=== PATIENT | female | born 1980 | race Caucasian/White ===

== ENCOUNTER 2016-11-12 11:52 | Emergency (ER) | payer SELFPAY ==
[2016-11-12 12:27] VITALS: BP 125/77
--- NOTE | 2016-11-12 18:44 | ER ---
SUBJECTIVE: The patient is a 36-year-old female, who states she just came from [place], it is her first day in [place], and she has some congestion in her nose. Occasional cough. Feels stuffed up. She has some right ear pain. She states she has chronic ear conditions. 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 She denies any trauma, denies any fevers, chills, nausea, vomiting, or diarrhea. No syncope. 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 She is hard of hearing, she has had PE tubes, she has had recurrent pneumonia, she had a tubal ligation. CURRENT MEDICATIONS: Include Ventolin HFA 1 puff inhaled twice a day p.r.n. ALLERGIES: She denies any allergies. SOCIAL HISTORY: She states she just got here from [place], it is her first day here. She has not established care yet. She is here with her mother and her young daughter, she states she smokes cigarettes every day and has done so for 20 years, she uses coffee and sports drinks, soda, and tea, but no alcohol and no recreational drug use. REVIEW OF SYSTEMS: No fevers. No chills. Occasional cough. Some nasal congestion. Some right ear pain. Occasional sore throat. No bowel or bladder changes. Please see HPI. OBJECTIVE: Vital Signs: Stable. She is afebrile, appears in no distress, nontoxic. She is somewhat warm. HEENT: Normocephalic, atraumatic. Conjunctivae are clear. Mucous membranes moist. Oropharynx is moist, mild erythema. It was swabbed by the nurse for a strep test. Her left ear is fairly normal. Her right ear is abnormal, but does not appear particularly infected. It appears as though she has had some surgery in the past. It is exquisitely tender to exam. I was extremely careful and looked in the ear, very hard to get a look in the ear, she continues to pull away. I do not see any redness, no drainage, no perforation, and no foreign bodies. The ear was abnormal. It could possibly be infected, but it is doubtful. It is likely secondary to the previous multiple surgeries she has had. Again, it was such a difficult exam as she would not allow further exam. Her mastoid is nontender. The pinna itself is nontender. Sinuses are nontender. Neck: No lymphadenopathy. Has full range of motion. Lungs: She has no respiratory distress. No coughing during exam. She moves well. I advised the patient we will see what the rapid strep shows. LAB/STUDIES: The strep and flu test were both negative. ASSESSMENT: 1. Right otalgia with possible infection, and the patient with removal of 4 cholesteatomas previously. 2. Upper respiratory infection with congestion and occasional cough. 3. Left against medical advice. PLAN: Her infection may be just viral, but because of the chronic ear issues and the difficult exam and her other upper respiratory issues, I did decide to put her on antibiotics and write her prescription of Ceftin 500 mg 1 p.o. b.i.d. for 10 days. Also, she is to take Tylenol and ibuprofen for baseline pain, but for severe ear pain, which I realized can be extremely tender, I did give her a prescription for tramadol 50 mg 1 p.o. t.i.d. p.r.n., #20, no refills. Advised fluids, rest, Tylenol and ibuprofen, symptomatic treatment, aggressive hydration, cooling and a heating pad. Advised to call clinic today and get established for ongoing care. When I did go out to put the prescription on the form and finish the discharge portion, I was informed by the RN that the patient had already left and had left AMA because she "didn't want to stay here anymore." As far as I know, the patient did not receive any of the results of her flu or rapid strep swabs and she certainly did not get the prescriptions and apparently just left AMA even though she did not have to wait very long period. I am not aware of any event or situation that prompted her to leave. She was certainly in no distress. She can certainly return to [facility] if she chooses to. [facility] /[phone]
== END 2016-11-12 13:25 | disposition left against medical advice (07) ==
LOC: DL.ED 11:52
DX: J06.9 Acute upper respiratory infection, unspecified (principal); H92.01 Otalgia, right ear; F17.210 Nicotine dependence, cigarettes, uncomplicated; Z87.01 Personal history of pneumonia (recurrent); Z98.51 Tubal ligation status
CPT/HCPCS: 87081; 87430; 87804; 99283

== ENCOUNTER 2017-06-14 17:34 | Emergency (ER) | payer MEDICAID ==
[2017-06-14 18:55] VITALS: BP 136/95
[2017-06-14] MEDS ORDERED: Clindamycin HCl 150 MG Cap PO ONE (19:01)
[2017-06-14] MEDS ORDERED: Acetaminophen/HYDROcodone 325-10 MG Tab PO ONE (19:01)
--- NOTE | 2017-06-14 19:06 | EDM.PDOC ---
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 Upper Tooth/Teeth Pain Score (Numeric/FACES): 6 - Related Data Allergies Allergy/AdvReac Type Severity Reaction Status Date / Time No Known Allergies Allergy Verified 06/14/17 18:55 Home Meds: Home Meds Albuterol [IJD: Ventolin HFA] 1 puff INH .TWICE DAILY PRN 11/12/16 [History] Past Medical History HEENT History: Reports: Hard of Hearing Respiratory History: Reports: Pneumonia, Recurrent Other OB/BYN History: tubal - Past Surgical History HEENT Surgical History: Reports: Myringotomy w Tube(s) Neurological Surgical History: Reports: Other (See Below) Social & Family History - Family History Family Medical History: Noncontributory - Tobacco Use Smoking Status *Q: Current Every Day Smoker Years of Tobacco use: 15 Packs/Tins Daily: 5 - Caffeine Use Caffeine Use: Reports: Coffee, Soda, Tea - Recreational Drug Use Recreational Drug Use: No ED ROS ENT - Review of Systems Review Of Systems: ROS reveals no pertinent complaints other than HPI. ED EXAM, ENT - Physical Exam Exam: See Below Exam Limited By: No Limitations General Appearance: Alert, WD/WN, Mild Distress, Other (tooth pain, crying) Ears: Hearing Grossly Normal Mouth/Throat: Dental Abcess, Dental Pain, Dental Tenderness, Other (extensive dental decay) Head: Atraumatic Neck: Non-Tender, Full Range of Motion Respiratory/Chest: No Respiratory Distress Cardiovascular: Regular Rate, Rhythm GI/Abdominal: Soft, Non-Tender Neurological: Alert, Oriented, Normal Cognition, Normal Gait, No Motor/Sensory Deficits Psychiatric: Tearful Skin: Warm, Dry, Normal Color Lymphatic: No Adenopathy Course - Vital Signs Last Recorded V/S: Last Vital Signs Temp 37.1 C 06/14/17 18:45 Pulse 97 06/14/17 18:45 Resp 20 06/14/17 18:45 BP 136/95 H 06/14/17 18:45 Pulse Ox 100 06/14/17 18:45 - Orders/Labs/Meds Meds: Medications Discontinued Medications Generic Name Dose Route Start Last Admin Trade Name Freq PRN Reason Stop Dose Admin Hydrocodone Bitart/Acetaminophen 1 tab 06/14/17 19:01 [place] 325-10 Mg PO 06/14/17 19:02 ONETIME ONE Clindamycin HCl 300 mg 06/14/17 19:01 Cleocin PO 06/14/17 19:02 ONETIME ONE Departure - Departure Time of Disposition: 19:04 Disposition: Home, Self-Care 01 Condition: Good Clinical Impression: Dental caries extending into dentin, Dental abscess, Dental caries - Discharge Information Instructions: Dental Abscess, [id number] Additional Instructions: 1) see Dentist 2) avoid sodas & candies. rx given; clindamycin 150mg qid x 40 vicodin 5/325mg tid prn x 20
== END 2017-06-14 19:09 | disposition home or self-care (01) ==
LOC: DL.ED 17:34
DX: K04.7 Periapical abscess without sinus (principal); K02.9 Dental caries, unspecified; F17.210 Nicotine dependence, cigarettes, uncomplicated
CPT/HCPCS: 99282; A9270

== ENCOUNTER 2017-06-16 09:56 | Emergency (ER) | payer MEDICAID ==
[2017-06-16 10:18] VITALS: BP 149/89
[2017-06-16] MEDS ORDERED: Lidocaine 2% Jelly 10 ML Urojet MUCMEM ONE (10:23)
--- NOTE | 2017-06-16 10:34 | EDM.PDOC ---
ED HPI GENERAL MEDICAL PROBLEM - General Chief Complaint: ENT Problem Stated Complaint: MOUTH STILL INFECTIED Time Seen by Provider: 06/16/17 10:22 Source of Information: Reports: Patient History Limitations: Reports: No Limitations - History of Present Illness INITIAL COMMENTS - FREE TEXT/NARRATIVE: 36 yo [place] Female c/o soreness and swelling to upper palate Onset: Today Onset Date: 06/16/17 Onset Time: 12:00 Duration: Day(s): Location: Reports: Face Quality: Reports: Ache Severity: Moderate Improves with: Reports: None Worsens with: Reports: None Context: Reports: Other (Pt. w/ advanced cavities) Associated Symptoms: Reports: No Other Symptoms Left Upper Gums Pain Score (Numeric/FACES): 8 - Related Data Allergies Allergy/AdvReac Type Severity Reaction Status Date / Time No Known Allergies Allergy Verified 06/16/17 10:14 Home Meds: Home Meds Albuterol [IJD: Ventolin HFA] 1 puff INH .TWICE DAILY PRN 11/12/16 [History] Clindamycin HCl [Cleocin] 150 mg PO Q6H 06/16/17 [History] oxyCODONE HCl/Acetaminophen [Percocet 5-325 mg Tablet] 1 tab PO PRN 06/16/17 [ History] Past Medical History HEENT History: Reports: Hard of Hearing Respiratory History: Reports: Pneumonia, Recurrent Other OB/BYN History: tubal - Past Surgical History HEENT Surgical History: Reports: Myringotomy w Tube(s) Neurological Surgical History: Reports: Other (See Below) Social & Family History - Family History Family Medical History: Noncontributory - Tobacco Use Smoking Status *Q: Current Every Day Smoker Years of Tobacco use: 15 Packs/Tins Daily: 5 - Caffeine Use Caffeine Use: Reports: Coffee, Soda, Tea - Recreational Drug Use Recreational Drug Use: No ED ROS ENT - Review of Systems Review Of Systems: See Below Constitutional: Reports: No Symptoms HEENT: Reports: Other (hard palate swelling w/ advanced caries) Respiratory: Reports: No Symptoms Cardiovascular: Reports: No Symptoms Endocrine: Reports: No Symptoms GI/Abdominal: Reports: No Symptoms : Reports: No Symptoms Musculoskeletal: Reports: No Symptoms Skin: Reports: No Symptoms Neurological: Reports: No Symptoms Psychiatric: Reports: No Symptoms Hematologic/Lymphatic: Reports: No Symptoms Immunologic: Reports: No Symptoms ED EXAM, ENT - Physical Exam Exam: See Below Exam Limited By: No Limitations General Appearance: Alert, No Apparent Distress, Anxious Eye Exam: Bilateral Eye: PERRL Ears: Normal External Exam Nose: Normal Inspection Mouth/Throat: Other (upper palate induration w/ advanced cavities) Head: Atraumatic, Normocephalic Neck: Normal Inspection, Supple Respiratory/Chest: No Respiratory Distress, Lungs Clear Cardiovascular: Normal Peripheral Pulses, Regular Rate, Rhythm GI/Abdominal: Normal Bowel Sounds Back: Normal Inspection Extremities: Normal Inspection, Normal Range of Motion Neurological: Alert, Oriented, CN II-XII Intact Psychiatric: Normal Affect Skin: Warm, Dry, Intact Lymphatic: No Adenopathy Course - Vital Signs Last Recorded V/S: Last Vital Signs Temp 37.1 C 06/16/17 10:16 Pulse 88 06/16/17 10:16 Resp 16 06/16/17 10:16 BP 149/89 H 06/16/17 10:16 Pulse Ox 99 06/16/17 10:16 - Orders/Labs/Meds Meds: Medications Discontinued Medications Generic Name Dose Route Start Last Admin Trade Name Felix PRN Reason Stop Dose Admin Lidocaine HCl 10 ml 06/16/17 10:23 Xylocaine 2% Jelly MUCMEM 06/16/17 10:24 ONETIME ONE Departure - Departure Time of Disposition: 10:54 Disposition: Against Medical Advice 07 Condition: Good Clinical Impression: Hard palate abscess, Caries involving multiple surfaces of tooth, Left against medical advice - Discharge Information Forms: ED Department Discharge, Refusal of Care AMA
== END 2017-06-16 10:55 | disposition left against medical advice (07) ==
LOC: DL.ED 09:56
DX: M27.2 Inflammatory conditions of jaws (principal); K02.9 Dental caries, unspecified; F17.210 Nicotine dependence, cigarettes, uncomplicated; Z79.899 Other long term (current) drug therapy; Z96.22 Myringotomy tube(s) status
CPT/HCPCS: 99282

== ENCOUNTER 2017-08-19 17:01 | Emergency (ER) | payer MEDICAID ==
[2017-08-19] MEDS ORDERED: metroNIDAZOLE 250 MG Tab PO ONE ×2 (17:02→17:23)
[2017-08-19] MEDS ORDERED: Amoxicillin/Clavulanate K 875-125 MG Tab PO ONE ×2 (17:02→17:23)
[2017-08-19] MEDS ORDERED: traMADol 50 MG Tab PO ONE ×2 (17:02→17:23)
[2017-08-19 17:09] VITALS: BP 129/80
[2017-08-19] MEDS ORDERED: Lidocaine 2% Viscous Solution 15 ML Cup PO ONE (17:24)
[2017-08-19] MEDS ORDERED: traMADol 50 MG Tab ONE (17:32)
[2017-08-19] MEDS ORDERED: Amoxicillin/Clavulanate K 875-125 MG Tab ONE (17:32)
[2017-08-19] MEDS ORDERED: metroNIDAZOLE 250 MG Tab ONE (17:32)
--- NOTE | 2017-08-19 17:56 | EDM.PDOC ---
Scribed by Sandra Marinelli 08/19/17 [id number] for Juno Francisco MD ED HPI GENERAL MEDICAL PROBLEM - General Chief Complaint: ENT Problem Stated Complaint: INFECTION [id number] Time Seen by Provider: 08/19/17 17:14 Source of Information: Reports: Patient, RN, RN Notes Reviewed History Limitations: Reports: No Limitations - History of Present Illness INITIAL COMMENTS - FREE TEXT/NARRATIVE: Patient with abscessed tooth. Patient reports her left upper canine tooth with swelling of the gums. Denies face swelling fever or chills. Onset: Today Duration: Constant Location: Reports: Other (left upper canine.) Quality: Reports: Ache Severity: Severe Improves with: Reports: None Worsens with: Reports: None Associated Symptoms: Reports: No Other Symptoms Left Upper Oral/Mouth Pain Score (Numeric/FACES): 8 - Related Data Allergies Allergy/AdvReac Type Severity Reaction Status Date / Time No Known Allergies Allergy Verified 08/19/17 17:14 Home Meds: Home Meds Clindamycin HCl [Cleocin] 150 mg PO Q6H 06/16/17 [History] Past Medical History HEENT History: Reports: Hard of Hearing, Other (See Below) (chronic dental decay.) Respiratory History: Reports: Pneumonia, Recurrent Other OB/BYN History: tubal - Past Surgical History HEENT Surgical History: Reports: Myringotomy w Tube(s) Neurological Surgical History: Reports: Other (See Below) Social & Family History - Family History Family Medical History: Noncontributory - Tobacco Use Smoking Status *Q: Current Every Day Smoker Years of Tobacco use: 15 Packs/Tins Daily: 5 - Caffeine Use Caffeine Use: Reports: Coffee, Soda, Tea - Recreational Drug Use Recreational Drug Use: No ED ROS ENT - Review of Systems Review Of Systems: ROS reveals no pertinent complaints other than HPI. ED EXAM, ENT - Physical Exam Exam: See Below Exam Limited By: No Limitations General Appearance: Alert, WD/WN, No Apparent Distress Eye Exam: Bilateral Eye: Normal Inspection Ears: Normal External Exam, Normal Canal, Hearing Grossly Normal, Normal TMs Nose: Normal Inspection, Normal Mucousa, No Blood Mouth/Throat: Other (Extensive dental decay with tenderness and swelling at left maxillary pre-molar. No facial swelling or erythema. ) Head: Atraumatic, Normocephalic Neck: Normal Inspection, Supple, Non-Tender, Full Range of Motion Neurological: Alert, Oriented, CN II-XII Intact, Normal Cognition, Normal Gait, Normal Reflexes, No Motor/Sensory Deficits Psychiatric: Normal Affect, Normal Mood Skin: Warm, Dry, Intact, Normal Color, No Rash Course - Vital Signs Last Recorded V/S: Last Vital Signs Temp 36.2 C 08/19/17 17:08 Pulse 92 08/19/17 17:08 Resp 18 08/19/17 17:08 BP 129/80 08/19/17 17:08 Pulse Ox 100 08/19/17 17:08 - Orders/Labs/Meds Meds: Medications Discontinued Medications Generic Name Dose Route Start Last Admin Trade Name Freq PRN Reason Stop Dose Admin Amoxicillin/Clavulanate Potassium 1 tab 08/19/17 17:23 08/19/17 17:44 Augmentin 875 Mg/125 Mg PO 08/19/17 17:24 1 tab ONETIME ONE Administration Amoxicillin/Clavulanate Potassium Confirm 08/19/17 17:32 08/19/17 17:46 Augmentin 875 Mg/125 Mg Administered 08/19/17 17:33 Not Given Dose 2 tab .ROUTE .STK-MED ONE Lidocaine HCl 15 ml 08/19/17 17:24 08/19/17 17:46 Xylocaine 2% Viscous PO 08/19/17 17:25 15 ml ONETIME ONE Administration Metronidazole 500 mg 08/19/17 17:23 08/19/17 17:45 Metronidazole PO 08/19/17 17:24 500 mg ONETIME ONE Administration Metronidazole Confirm 08/19/17 17:32 08/19/17 17:46 Metronidazole Administered 08/19/17 17:33 Not Given Dose 1,500 mg .ROUTE .STK-MED ONE Tramadol HCl 50 mg 08/19/17 17:23 08/19/17 17:45 Ultram PO 08/19/17 17:24 50 mg ONETIME ONE Administration Tramadol HCl Confirm 08/19/17 17:32 08/19/17 17:47 Ultram Administered 08/19/17 17:33 Not Given Dose 200 mg .ROUTE .STK-MED ONE Departure - Departure Time of Disposition: 17:19 Disposition: Home, Self-Care 01 Condition: Good Clinical Impression: Dental abscess - Discharge Information Instructions: Dental Abscess, [id number] Forms: ED Department Discharge Additional Instructions: RX: Flagyl 500mg. RX: Augmentin 875mg. Viscus Lidocaine 2%. RX: Tramadol 50mg. Follow up with dentist at next available appointment. I have read and agree with the documentation that has been completed regarding this visit. By signing this record, I attest that the documentation was completed in my physical presence and is an accurate record of the encounter.
== END 2017-08-19 17:51 | disposition home or self-care (01) ==
LOC: DL.ED 17:01
DX: K04.7 Periapical abscess without sinus (principal); K02.9 Dental caries, unspecified; F17.210 Nicotine dependence, cigarettes, uncomplicated
CPT/HCPCS: 99283; A9270